=== PATIENT | female | born 1965 | race Caucasian/White ===

== ENCOUNTER 2017-07-22 17:54 | Emergency (ER) | payer BC ==
[2017-07-22] MEDS: diazePAM 5 MG TABLET PO ×2 (19:00)
== END 2017-07-22 19:19 | disposition home or self-care (01) ==
LOC: ER 19:19
DX: S16.1XXA Strain of muscle, fascia and tendon at neck level, initial encounter (principal); X58.XXXA Exposure to other specified factors, initial encounter; Y93.89 Activity, other specified; Y92.89 Other specified places as the place of occurrence of the external cause; Y99.8 Other external cause status
CPT/HCPCS: 99283